=== PATIENT | male | born 1930 | race Caucasian/White ===

== ENCOUNTER 2019-02-02 10:20 | Day surgery (SDC) | payer MEDICARE, OTHER ==
[~2019-02-02 10:20] MED LIST: Cefuroxime 10 MG/ML SYRINGE EYERT SCH; Lidocaine 1% PF 2 ML SDV INJECT SCH; Pilocarpine 4% Ophth Soln 15 ML Bot EYERT SCH
[2019-02-02] MEDS: Polymyxin B/Trimethoprim 10 ML Bottle EYERT SCH ×3 (11:20→13:14)
[2019-02-02] MEDS: Brimonidine 0.2% Ophth Soln 15 ML Bottle EYERT SCH ×3 (11:25→13:14)
[2019-02-02] MEDS: Phenylephrine 2.5% Ophth Soln 2 ML Bot EYERT SCH ×5 (11:30→12:41)
[2019-02-02] MEDS: Tropicamide 1% Ophth Soln 15 ML Bottle EYERT SCH ×4 (11:35→12:22)
--- NOTE | 2019-02-02 11:53 | PCM.PREANE ---
Preanesthetic Assessment - Anesthesia/Transfusion/Family Hx Anesthesia History: Prior Anesthesia Without Reaction Family History of Anesthesia Reaction: No Transfusion History: No Prior Transfusion(s) - Review of Systems General: No Symptoms Pulmonary: Other ("runny nose") Cardiovascular: Dyspnea on Exertion Gastrointestinal: No Symptoms Neurological: Numbness ("to the left leg") Other: Reports: Easy Bruising, Diabetes - Physical Assessment NPO Status Date: 02/01/19 NPO Status Time: 18:00 Vital Signs: Last Vital Signs Temp 37.0 C 02/02/19 11:05 Pulse 74 02/02/19 11:05 Resp 16 02/02/19 11:05 BP 177/68 H 02/02/19 11:05 Pulse Ox 98 02/02/19 11:05 Height: 1.7 m Weight: 77.111 kg ASA Class: 3 Mental Status: Alert & Oriented x3 Dentition: Reports: Dentures (top), Partial (bottom) Thyro-Mental Finger Breadths: 3 Mouth Opening Finger Breadths: 3 ROM/Head Extension: Full Lungs: Clear to Auscultation, Normal Respiratory Effort Cardiovascular: Regular Rate, Regular Rhythm - Allergies Allergies/Adverse Reactions: Allergies Allergy/AdvReac Type Severity Reaction Status Date / Time erythromycin base Allergy Cannot Verified 02/01/19 13:42 Remember - Blood Blood Available: No Product(s) Available: None - Anesthesia Plan Beta Julio Cesar: Carvedilol Med Last Dose Date: 02/02/19 Med Last Dose Time: 07:30 - Acknowledgements Anesthesia Type Planned: MAC Pt an Appropriate Candidate for the Planned Anesthesia: Yes Alternatives and Risks of Anesthesia Discussed w Pt/Guardian: Yes Pt/Guardian Understands and Agrees with Anesthesia Plan: Yes PreAnesthesia Questionnaire - SUBSTANCE USE Smoking Status *Q: Former Smoker Tobacco Use Within Last Twelve Months: No Second Hand Smoke Exposure: No Days Per Week of Alcohol Use: 1 Number of Drinks Per Day: 2 Total Drinks Per Week: 2 Recreational Drug Use History: No - HOME MEDS Home Medications: Home Meds Aspirin [Halfprin] 81 mg PO DAILY 02/01/19 [History] Carvedilol [Coreg] 3.125 mg PO BID 02/01/19 [History] Clopidogrel Bisulfate [Plavix] 75 mg PO DAILY 02/01/19 [History] Furosemide [Lasix] 40 mg PO DAILY 02/01/19 [History] Lisinopril 40 mg PO DAILY 02/01/19 [History] Niacin 100 mg PO DAILY 02/01/19 [History] Nitroglycerin [Nitrostat] 0.4 mg PO ASDIRECTED PRN 02/01/19 [History] Pantoprazole Sodium [Protonix] 40 mg PO DAILY 02/01/19 [History] amLODIPine Besylate [Norvasc] 10 mg PO DAILY 02/01/19 [History] metFORMIN [Glucophage XR] 1,000 mg PO BID 02/01/19 [History] - CURRENT (IN HOUSE) MEDS Current Meds: Current Medications Brimonidine Tartrate (Brimonidine Tartrate 0.2% Ophth Soln) 0 ml EYERT ASDIRECTED ASHOK Stop: 02/02/19 18:00 Last Admin: 02/02/19 11:25 Dose: 1 drop Cefuroxime Sodium (Zinacef) 0 mg EYERT ASDIRECTED ASHOK Stop: 02/02/19 18:00 Lidocaine HCl (Xylocaine-Mpf 1%) 1 ml INJECT ASDIRECTED ASHOK Stop: 02/02/19 18:00 Phenylephrine HCl (Alexander-Synephrine 2.5% Ophth Soln) 0 ml EYERT ASDIRECTED ASHOK Stop: 02/02/19 18:00 Last Admin: 02/02/19 11:41 Dose: 1 drop Pilocarpine HCl (Pilocar 4% Ophth Soln) 0 ml EYERT ASDIRECTED ASHOK Stop: 02/02/19 18:00 Polymyxin/Trimethoprim Sulfate (Polytrim Ophth Soln) 0 ml EYERT ASDIRECTED ASHOK Stop: 02/02/19 18:00 Last Admin: 02/02/19 11:20 Dose: 1 drop Tetracaine HCl (Tetracaine 0.5% Steri-Unit Deepthi) 0 ml EYERT ASDIRECTED ASHOK Stop: 02/02/19 18:00 Tropicamide (Mydriacyl 1% Ophth Soln) 0 ml EYERT ASDIRECTED ASHOK Stop: 02/02/19 18:00 Last Admin: 02/02/19 11:35 Dose: 1 drop
[2019-02-02] MEDS: Tetracaine HCl/PF 0.5% 4 ML Bottle EYERT SCH ×4 (12:27→12:50)
--- NOTE | 2019-02-02 13:05 | PCM48HPAN ---
Post Anesthesia Note - EVALUATION WITHIN 48HRS OF ANESTHETIC Vital Signs in Normal Range: Yes Patient Participated in Evaluation: Yes Respiratory Function Stable: Yes Airway Patent: Yes Cardiovascular Function Stable: Yes Hydration Status Stable: Yes Pain Control Satisfactory: Yes Nausea and Vomiting Control Satisfactory: Yes Mental Status Recovered: Yes Vital Signs: Last Vital Signs Temp 37.0 C 02/02/19 11:05 Pulse 74 02/02/19 11:05 Resp 16 02/02/19 11:05 BP 177/68 H 02/02/19 11:05 Pulse Ox 98 02/02/19 11:05
== END 2019-02-02 13:26 | disposition home or self-care (01) ==
LOC: JD.SDS 10:20
PROVIDERS: ATTEND Ophthalmology
DX: E11.36 Type 2 diabetes mellitus with diabetic cataract (principal); H25.813 Combined forms of age-related cataract, bilateral; H21.81 Floppy iris syndrome; H21.41 Pupillary membranes, right eye; E11.39 Type 2 diabetes mellitus with other diabetic ophthalmic complication; H40.053 Ocular hypertension, bilateral; H42 Glaucoma in diseases classified elsewhere; H02.834 Dermatochalasis of left upper eyelid; H02.831 Dermatochalasis of right upper eyelid; H16.223 Keratoconjunctivitis sicca, not specified as Sjogren's, bilateral; H16.103 Unspecified superficial keratitis, bilateral; I10 Essential (primary) hypertension; E78.00 Pure hypercholesterolemia, unspecified; K21.9 Gastro-esophageal reflux disease without esophagitis; G47.30 Sleep apnea, unspecified; M19.90 Unspecified osteoarthritis, unspecified site; Z88.1 Allergy status to other antibiotic agents; Z87.891 Personal history of nicotine dependence; Z79.82 Long term (current) use of aspirin; Z79.02 Long term (current) use of antithrombotics/antiplatelets; Z79.84 Long term (current) use of oral hypoglycemic drugs; Z79.899 Other long term (current) drug therapy
CPT/HCPCS: 66982; J0697; J2001; V2632